=== PATIENT | female | born 1940 | race African-American/Black ===

== ENCOUNTER 2016-11-03 08:50 | Emergency (ER) | payer MEDICAID ==
[~2016-11-03] VITALS: Ht 170.2 cm; Wt 64.0 kg
[~2016-11-03 08:50] MED LIST: ASPI-1073 PO; CARV3.1242 PO; CHOL200035 PO; CYAN1TAB43; CYCL-374 PO; ERGO2000 PO; FOLIC ACID PO; GLIP5TAB12 PO; LORA0.5T2 PO; LOSA25TA12 PO; LOSA50TA3 PO; METO50TA95 PO; RENA-VITE PO; SIMV40TA5 PO; ZINC220C6 PO; [UNRECOGNIZED DRUG - CODE] PO
[2016-11-03 09:26] VITALS: BP 195/76
== END 2016-11-03 12:17 | disposition home or self-care (01) ==
LOC: ER 12:03
DX: Z48.02 Encounter for removal of sutures (principal); I10 Essential (primary) hypertension; E11.9 Type 2 diabetes mellitus without complications; Z99.2 Dependence on renal dialysis; Z79.82 Long term (current) use of aspirin
CPT/HCPCS: 99281; Z7610

== ENCOUNTER 2018-03-04 07:24 | Inpatient (IN) | payer MEDICAID ==
[~2018-03-04] VITALS: Ht 162.6 cm; Wt 63.6 kg
[~2018-03-04 07:24] MED LIST changes: +AMLO5TAB4 PO; +ATOR20TA65 PO; +CHOL200010 PO; -CHOL200035 PO; +CLOP75TA16 PO; -CYAN1TAB43; +CYAN1TAB43 PO; -CYCL-374 PO; +DOXA4TAB3 PO; -ERGO2000 PO; +GUAI10LI9 PO; -LORA0.5T2 PO; -METO50TA95 PO; -SIMV40TA5 PO; -ZINC220C6 PO
[2018-03-04] MEDS ORDERED: LORAZEPAM 2MG/ML CPJ IM STA (10:39)
[2018-03-04] MEDS ORDERED: LORAZEPAM 2MG/ML CPJ IV ONE (11:30)
[2018-03-04 12:02] LABS: HEMATOCRIT. 38.8 % (36.0-48.0); HEMOGLOBIN. 12.5 g/dL (12.0-16.0); MEAN CORPUSCULAR HEMOGLOBIN 30.4 pg (28.0-32.0); MEAN CORPUSCULAR VOLUME 94.7 fL (81.0-99.0); RED CELL DISTRIBUTION WIDTH 17.4 % (11.6-14.6)
[2018-03-04 12:05] LABS: CHLORIDE 95 mEq/L (98-107)
[2018-03-04 12:06] LABS: INR 1.1; PARTIAL THROMBOPLASTIN TIME 24.3 sec (23.4-31.0); PROTHROMBIN TIME 10.9 sec (9.1-11.1)
[2018-03-04] MEDS ORDERED: ASPIRIN 81MG TABLET PO ONE (12:30)
[2018-03-04 12:32] LABS: CLARITY URINE TURBID (CLEAR); COLOR URINE DARK YELLOW (YELLOW); KETONES URINE NEGATIVE (NEGATIVE); LEUKOCYTE ESTERASE URINE 2+ (NEGATIVE); NITRITE URINE NEGATIVE (NEGATIVE); OCCULT BLOOD URINE 1+ (NEGATIVE); PH URINE >=9.0 (4.5-8.0); PROTEIN URINE 3+ (NEGATIVE); SPECIFIC GRAVITY URINE 1.013 (1.005-1.030); UROBILINOGEN URINE 0.2 E.U./dL (0.2-1.0)
[2018-03-04 12:54] LABS: PLATELET ESTIMATE NORMAL
[2018-03-04 12:55] LABS: PLATELET 146 x1000/uL (130-400)
[2018-03-04] MEDS ORDERED: CEFTRIAXONE 1 G PREMIX 50 ML IV ONE (13:45)
[2018-03-04] MEDS ORDERED: HYDRALAZINE 20MG/ML VIAL IV ONE (14:00)
[2018-03-04 15:45] VITALS: BP 134/62
[2018-03-04 16:06] VITALS: BP 134/62
[2018-03-04] MEDS ORDERED: ONDANSETRON HCL 4MG/2ML INJ IV PRN (18:00)
[2018-03-04] MEDS ORDERED: MEDICATION NOT ON FORMULARY EA XX SCH ×8 (18:00)
[2018-03-04] MEDS ORDERED: DIPHENHYDRAMINE 50MG/ML VIAL IV PRN (18:00)
[2018-03-04] MEDS ORDERED: CLONIDINE 0.1MG TABLET PO PRN (18:00)
[2018-03-04] MEDS ORDERED: DOCUSATE SODIUM 100MG CAPSULE PO PRN (18:00)
[2018-03-04] MEDS ORDERED: ACETAMINOPHEN 325MG TABLET PO PRN (18:00)
[2018-03-04 20:00] VITALS: BP 138/80
[2018-03-04] MEDS: PIPERACILLIN/TAZ 2.25G PREMIX 50 ML IV SCH (20:20)
[2018-03-04] MEDS: ENOXAPARIN 30MG/0.3ML SYR SUBCUT SCH (20:25)
[2018-03-04] MEDS: CARVEDILOL 6.25 MG TABLET PO SCH (20:28)
[2018-03-04] MEDS: ATORVASTATIN CALCIUM 20MG TABLET PO SCH (20:28)
[2018-03-04] MEDS: AMLODIPINE 5MG TABLET PO SCH (20:29)
[2018-03-04] MEDS: DOXAZOSIN MESYLATE 4MG TABLET PO SCH (20:31)
[2018-03-04] MEDS ORDERED: VANCOMYCIN 1250MG in DEXTROSE 5% WATER 250ML IV NR (21:00)
[2018-03-04] MEDS: SODIUM CHLORIDE 0.9% INJ 3ML FLUSH IVF SCH (21:18)
[2018-03-04 22:00] VITALS: BP 169/90
[2018-03-04] MEDS ORDERED: DEXTROSE 50% WATER 50ML SYRINGE IV PRN (23:15)
[2018-03-05] VITALS (8 sets, daily range): BP systolic 128–165; BP diastolic 48–59
[2018-03-05] MEDS ORDERED: LEVOFLOXACIN 500MG TABLET PO SCH
[2018-03-05] MEDS: PIPERACILLIN/TAZ 2.25G PREMIX 50 ML IV SCH ×3 (04:00→20:00)
[2018-03-05] MEDS: SODIUM CHLORIDE 0.9% INJ 3ML FLUSH IVF SCH ×3 (05:27→21:36)
[2018-03-05] MEDS: BLOOD SUGAR DIAGNOSTIC STRIP TEST SCH ×4 (06:18→20:19)
[2018-03-05] MEDS ORDERED: INSULIN LISPRO 100 UNITS/ML SUBCUT SCH (08:10)
[2018-03-05] MEDS: FOLIC ACID/VITAMIN B COMP W-C TABLET PO SCH (08:39)
[2018-03-05] MEDS: CARVEDILOL 6.25 MG TABLET PO SCH ×2 (08:39→20:13)
[2018-03-05] MEDS: AMLODIPINE 5MG TABLET PO SCH ×2 (08:39→20:13)
[2018-03-05] MEDS: LOSARTAN POTASSIUM 25 MG TABLET PO SCH (08:39)
[2018-03-05] MEDS: CLOPIDOGREL 75MG TABLET PO SCH (08:39)
[2018-03-05] MEDS: GLIPIZIDE 5MG TABLET PO SCH (08:39)
[2018-03-05] MEDS: CHOLECALCIFEROL (D3) 1000 UNIT TABLET PO SCH (08:40)
[2018-03-05] MEDS: ASPIRIN 81MG TABLET PO SCH (08:40)
[2018-03-05] MEDS: CALCIUM CARBONATE 500MG TABLET CHEW PO SCH ×3 (08:40→18:10)
[2018-03-05] MEDS: ATORVASTATIN CALCIUM 20MG TABLET PO SCH (20:12)
[2018-03-05] MEDS: ENOXAPARIN 30MG/0.3ML SYR SUBCUT SCH (20:12)
[2018-03-05] MEDS: DOXAZOSIN MESYLATE 4MG TABLET PO SCH (20:12)
[2018-03-06] VITALS: BP 153/42
[2018-03-06] MEDS: PIPERACILLIN/TAZ 2.25G PREMIX 50 ML IV SCH ×3 (03:52→20:00)
[2018-03-06 04:00] VITALS: BP 163/50
[2018-03-06] MEDS: SODIUM CHLORIDE 0.9% INJ 3ML FLUSH IVF SCH ×3 (05:32→21:44)
[2018-03-06] MEDS: BLOOD SUGAR DIAGNOSTIC STRIP TEST SCH ×4 (07:40→21:44)
[2018-03-06 08:00] VITALS: BP 158/67
[2018-03-06] MEDS: CLOPIDOGREL 75MG TABLET PO SCH (08:27)
[2018-03-06] MEDS: FOLIC ACID/VITAMIN B COMP W-C TABLET PO SCH (08:27)
[2018-03-06] MEDS: ASPIRIN 81MG TABLET PO SCH (08:27)
[2018-03-06] MEDS: AMLODIPINE 5MG TABLET PO SCH ×2 (08:27→21:00)
[2018-03-06] MEDS: CALCIUM CARBONATE 500MG TABLET CHEW PO SCH ×3 (08:27→18:25)
[2018-03-06] MEDS: CHOLECALCIFEROL (D3) 1000 UNIT TABLET PO SCH (08:27)
[2018-03-06] MEDS: CARVEDILOL 6.25 MG TABLET PO SCH ×2 (08:28→21:00)
[2018-03-06 09:29] LABS: BASOPHILS % 0.8 % (0.0-2.0); EOSINOPHILS % 6.7 % (0.0-5.0); HEMATOCRIT. 31.1 % (36.0-48.0); HEMOGLOBIN. 9.9 g/dL (12.0-16.0); LYMPHOCYTES % 30.1 % (20.0-50.0); MEAN CORPUSCULAR HEMOGLOBIN 29.9 pg (28.0-32.0); MEAN CORPUSCULAR VOLUME 93.6 fL (81.0-99.0); MEAN PLATELET VOLUME 11.1 fl (7.4-10.4); MONOCYTES % 12.2 % (2.0-8.0); NEUTROPHILS % 50.2 % (40.0-76.0); PLATELET 147 x1000/uL (130-400); RED BLOOD CELL COUNT 3.33 mill/uL (4.2-5.4); RED CELL DISTRIBUTION WIDTH 17.3 % (11.6-14.6)
[2018-03-06 09:56] LABS: PHOSPHORUS 4.7 mg/dL (2.5-4.9)
[2018-03-06] MEDS: GLIPIZIDE 5MG TABLET PO SCH (11:37)
[2018-03-06] MEDS: LOSARTAN POTASSIUM 25 MG TABLET PO SCH (11:43)
[2018-03-06 12:00] VITALS: BP 164/59
[2018-03-06] MEDS ORDERED: VANCOMYCIN 1250MG in DEXTROSE 5% WATER 250ML IV NR (14:00)
[2018-03-06 16:00] VITALS: BP 173/61
[2018-03-06 20:00] VITALS: BP 159/70
[2018-03-06] MEDS: ENOXAPARIN 30MG/0.3ML SYR SUBCUT SCH (20:00)
[2018-03-06] MEDS ORDERED: EPOETIN ALFA 4000UNITS/ML VIAL SUBCUT SCH (21:00)
[2018-03-06] MEDS ORDERED: LEVOFLOXACIN 250MG TABLET PO SCH (21:00)
[2018-03-06] MEDS: ATORVASTATIN CALCIUM 20MG TABLET PO SCH (21:00)
[2018-03-06] MEDS: DOXAZOSIN MESYLATE 4MG TABLET PO SCH (21:00)
[2018-03-07] VITALS (8 sets, daily range): BP systolic 134–170; BP diastolic 47–82
[2018-03-07] MEDS: PIPERACILLIN/TAZ 2.25G PREMIX 50 ML IV SCH ×3 (04:00→13:51)
[2018-03-07] MEDS: SODIUM CHLORIDE 0.9% INJ 3ML FLUSH IVF SCH ×2 (06:00→14:00)
[2018-03-07] MEDS: GLIPIZIDE 5MG TABLET PO SCH (06:42)
[2018-03-07] MEDS: BLOOD SUGAR DIAGNOSTIC STRIP TEST SCH ×3 (06:42→17:40)
[2018-03-07] MEDS: CALCIUM CARBONATE 500MG TABLET CHEW PO SCH ×3 (08:10→18:10)
[2018-03-07] MEDS: CLOPIDOGREL 75MG TABLET PO SCH (10:03)
[2018-03-07] MEDS: FOLIC ACID/VITAMIN B COMP W-C TABLET PO SCH (10:03)
[2018-03-07] MEDS: CARVEDILOL 6.25 MG TABLET PO SCH (10:04)
[2018-03-07] MEDS: AMLODIPINE 5MG TABLET PO SCH (10:04)
[2018-03-07] MEDS: ASPIRIN 81MG TABLET PO SCH (10:05)
[2018-03-07] MEDS: LOSARTAN POTASSIUM 25 MG TABLET PO SCH (10:05)
[2018-03-07] MEDS: CHOLECALCIFEROL (D3) 1000 UNIT TABLET PO SCH (10:21)
[2018-03-07] MEDS: VANCOMYCIN 1250MG in DEXTROSE 5% WATER 250ML IV NR ×2 (13:53→14:00)
== END 2018-03-07 21:50 | DRG 720 ==
LOC: ER 07:24 → 7WST 13:39 → EDBEDREQ 14:12 → ENRESERV 14:43
PROVIDERS: ADMIT Internal Medicine Nephrology; ATTEND Internal Medicine Nephrology
DX: A41.9 Sepsis, unspecified organism (principal); G92 Toxic encephalopathy; E11.22 Type 2 diabetes mellitus with diabetic chronic kidney disease; E11.51 Type 2 diabetes mellitus with diabetic peripheral angiopathy without gangrene; I49.5 Sick sinus syndrome; I08.1 Rheumatic disorders of both mitral and tricuspid valves; D64.9 Anemia, unspecified; F41.9 Anxiety disorder, unspecified; N39.0 Urinary tract infection, site not specified; E78.00 Pure hypercholesterolemia, unspecified; I12.0 Hypertensive chronic kidney disease with stage 5 chronic kidney disease or end stage renal disease; N18.6 End stage renal disease; I42.0 Dilated cardiomyopathy; G31.9 Degenerative disease of nervous system, unspecified; T82.524A Displacement of infusion catheter, initial encounter; Y84.8 Other medical procedures as the cause of abnormal reaction of the patient, or of later complication, without mention of misadventure at the time of the procedure; Y92.238 Other place in hospital as the place of occurrence of the external cause; Z53.29 Procedure and treatment not carried out because of patient's decision for other reasons; I25.2 Old myocardial infarction; Z99.2 Dependence on renal dialysis; Z95.0 Presence of cardiac pacemaker; Z79.82 Long term (current) use of aspirin; Z79.84 Long term (current) use of oral hypoglycemic drugs; Z79.899 Other long term (current) drug therapy; Z89.411 Acquired absence of right great toe; Z88.8 Allergy status to other drugs, medicaments and biological substances
CPT/HCPCS: 36415; 70450; 71045; 80048; 80053; 80202; 81003; 82962; 83880; 84100; 84484; 85025; 85610; 85730; 87086; 93005; 96372; 96374; 99285; J0360; J0885; J1650; J2060; J2543; J3370; J7050; J7060

== ENCOUNTER 2018-10-21 11:48 | Emergency (ER) | payer MEDICAID ==
[~2018-10-21] VITALS: Ht 317.5 cm; Wt 58.0 kg
[2018-10-21 12:51] LABS: HEMATOCRIT. 33.9 % (36.0-48.0); HEMOGLOBIN. 10.7 g/dL (12.0-16.0); MEAN CORPUSCULAR VOLUME 85.9 fL (81.0-99.0); MEAN PLATELET VOLUME 8.8 fl (7.4-10.4); PLATELET 211 x1000/uL (130-400); RED BLOOD CELL COUNT 3.95 mill/uL (4.2-5.4); RED CELL DISTRIBUTION WIDTH 20.5 % (11.6-14.6)
[2018-10-21 12:58] LABS: CHLORIDE 99 mEq/L (98-107)
[2018-10-21 13:01] LABS: INR 1.1
[2018-10-21 13:10] LABS: PLATELET ESTIMATE NORMAL
[2018-10-21 17:30] VITALS: BP 141/68
== END 2018-10-21 18:07 | disposition home or self-care (01) ==
LOC: ER 11:48
DX: T82.868A Thrombosis due to vascular prosthetic devices, implants and grafts, initial encounter (principal); E11.22 Type 2 diabetes mellitus with diabetic chronic kidney disease; I12.0 Hypertensive chronic kidney disease with stage 5 chronic kidney disease or end stage renal disease; N18.6 End stage renal disease; Z79.4 Long term (current) use of insulin; Z79.899 Other long term (current) drug therapy; Z99.2 Dependence on renal dialysis
CPT/HCPCS: 36415; 71045; 93005; 99284

== ENCOUNTER 2018-10-22 10:15 | Inpatient (IN) | payer MEDICAID ==
[~2018-10-22] VITALS: Ht 154.9 cm; Wt 59.9 kg
[2018-10-22 11:28] LABS: CHLORIDE 100 mEq/L (98-107)
[2018-10-22 11:29] LABS: HEMATOCRIT. 33.5 % (36.0-48.0); HEMOGLOBIN. 10.5 g/dL (12.0-16.0); MEAN CORPUSCULAR HEMOGLOBIN 26.9 pg (28.0-32.0); MEAN CORPUSCULAR VOLUME 85.4 fL (81.0-99.0); MEAN PLATELET VOLUME 8.9 fl (7.4-10.4); PLATELET 233 x1000/uL (130-400); RED BLOOD CELL COUNT 3.92 mill/uL (4.2-5.4); RED CELL DISTRIBUTION WIDTH 20.3 % (11.6-14.6)
[2018-10-22 11:33] LABS: PROTHROMBIN TIME 10.7 sec (9.6-11.0)
[2018-10-22 11:50] LABS: PLATELET ESTIMATE NORMAL
[2018-10-22] MEDS ORDERED: SODIUM BICARBONATE 4% (2.4MEQ) 5ML VIAL IV ONE (14:25)
[2018-10-22] MEDS ORDERED: LIDOCAINE HCL 1% 20ML VIAL (Pyxis) INJ ONE (14:25)
[2018-10-22] MEDS ORDERED: ONDANSETRON HCL 4MG/2ML INJ IV PRN (15:30)
[2018-10-22] MEDS ORDERED: ACETAMINOPHEN 325MG TABLET PO PRN (15:30)
[2018-10-22] MEDS: CLONIDINE 0.1MG TABLET PO PRN (16:10)
[2018-10-22] MEDS ORDERED: LOSARTAN POTASSIUM 100 MG TABLET PO NR (16:15)
[2018-10-22 18:30] VITALS: BP 182/62
[2018-10-22 20:00] VITALS: BP_SYST 181; BP_SYST 190; BP_DIAS 80; BP_DIAS 96
[2018-10-22] MEDS: AMLODIPINE 5MG TABLET PO SCH (20:18)
[2018-10-22] MEDS: CARVEDILOL 6.25 MG TABLET PO SCH (20:18)
[2018-10-22] MEDS ORDERED: ZOLPIDEM TARTRATE 5MG TABLET PO PRN (21:00)
[2018-10-22] MEDS: DOXAZOSIN MESYLATE 4MG TABLET PO SCH (22:33)
[2018-10-22] MEDS: HYDRALAZINE HCL 50MG TABLET PO SCH (22:33)
[2018-10-23] VITALS (22 sets, daily range): BP systolic 107–178; BP diastolic 48–61
[2018-10-23] MEDS: HYDRALAZINE HCL 50MG TABLET PO SCH (05:21)
[2018-10-23] MEDS ORDERED: GLIPIZIDE 5MG TABLET PO SCH (07:10)
[2018-10-23] MEDS ORDERED: HEPARIN 1000 UNITS/ML 10ML ONE (07:28)
[2018-10-23] MEDS ORDERED: LIDOCAINE HCL 1% 20ML VIAL (Pyxis) INJ ONE (07:28)
[2018-10-23] MEDS ORDERED: SODIUM BICARBONATE 4% (2.4MEQ) 5ML VIAL IV ONE (07:28)
[2018-10-23] MEDS: SEVELAMER CARBONATE 800 MG TABLET PO SCH ×3 (07:40→18:39)
[2018-10-23] MEDS: LOSARTAN POTASSIUM 100 MG TABLET PO SCH (08:15)
[2018-10-23] MEDS: AMLODIPINE 5MG TABLET PO SCH ×2 (08:16→20:58)
[2018-10-23] MEDS: CARVEDILOL 6.25 MG TABLET PO SCH ×2 (08:16→20:57)
[2018-10-23] MEDS: FOLIC ACID/VITAMIN B COMP W-C TABLET PO SCH (08:22)
[2018-10-23] MEDS: ASPIRIN 81MG TABLET PO SCH (08:22)
[2018-10-23] MEDS: CLOPIDOGREL 75MG TABLET PO SCH (08:22)
[2018-10-23] MEDS ORDERED: CEFAZOLIN 1000MG PREMIX 50 ML IV ONE ×2 (09:14→09:15)
[2018-10-23] MEDS ORDERED: FENTANYL CITRATE/PF 50MCG/ML 2ML VIAL ONE (09:15)
[2018-10-23] MEDS ORDERED: IOHEXOL-300 100 ML BOTTLE ONE (09:15)
[2018-10-23] MEDS ORDERED: FENTANYL CITRATE/PF 50MCG/ML 2ML VIAL IV ONE (09:30)
[2018-10-23] MEDS ORDERED: ONDANSETRON HCL 4MG/2ML INJ IV PRN (11:45)
[2018-10-23 12:14] LABS: HEMATOCRIT. 28.7 % (36.0-48.0); HEMOGLOBIN. 9.2 g/dL (12.0-16.0); MEAN CORPUSCULAR HEMOGLOBIN 26.9 pg (28.0-32.0); MEAN CORPUSCULAR VOLUME 84.1 fL (81.0-99.0); MEAN PLATELET VOLUME 8.3 fl (7.4-10.4); PLATELET 195 x1000/uL (130-400); RED BLOOD CELL COUNT 3.41 mill/uL (4.2-5.4); RED CELL DISTRIBUTION WIDTH 20.2 % (11.6-14.6)
[2018-10-23 13:11] LABS: PLATELET ESTIMATE NORMAL
[2018-10-23] MEDS: HYDRALAZINE HCL 100MG TABLET PO SCH ×2 (14:00→20:58)
[2018-10-23] MEDS: DOXAZOSIN MESYLATE 4MG TABLET PO SCH (20:57)
[2018-10-24] VITALS: BP 161/52
[2018-10-24 04:00] VITALS: BP 152/51
[2018-10-24] MEDS: HYDRALAZINE HCL 100MG TABLET PO SCH ×3 (05:09→17:46)
[2018-10-24 08:00] VITALS: BP 170/69
[2018-10-24] MEDS: SEVELAMER CARBONATE 800 MG TABLET PO SCH ×2 (08:12→12:40)
[2018-10-24 08:13] LABS: HEMATOCRIT. 29.3 % (36.0-48.0); HEMOGLOBIN. 9.3 g/dL (12.0-16.0); MEAN CORPUSCULAR HEMOGLOBIN 26.6 pg (28.0-32.0); MEAN PLATELET VOLUME 9.4 fl (7.4-10.4); PLATELET 198 x1000/uL (130-400); RED BLOOD CELL COUNT 3.49 mill/uL (4.2-5.4); RED CELL DISTRIBUTION WIDTH 20.4 % (11.6-14.6)
[2018-10-24] MEDS: CLOPIDOGREL 75MG TABLET PO SCH ×2 (09:00→11:59)
[2018-10-24] MEDS: FOLIC ACID/VITAMIN B COMP W-C TABLET PO SCH ×2 (09:00→11:59)
[2018-10-24] MEDS: AMLODIPINE 5MG TABLET PO SCH ×2 (09:00→11:59)
[2018-10-24] MEDS: LOSARTAN POTASSIUM 100 MG TABLET PO SCH ×2 (09:00→11:58)
[2018-10-24] MEDS: ASPIRIN 81MG TABLET PO SCH ×2 (09:00→11:59)
[2018-10-24] MEDS: CARVEDILOL 6.25 MG TABLET PO SCH ×2 (09:00→11:59)
[2018-10-24 10:34] LABS: PLATELET ESTIMATE NORMAL
[2018-10-24 12:00] VITALS: BP 179/49
[2018-10-24] MEDS ORDERED: LOSA100T3 PO (13:42)
[2018-10-24] MEDS ORDERED: HYDR100T26 PO (13:42)
[2018-10-24 15:44] VITALS: BP 165/60
[2018-10-24 15:45] VITALS: BP 165/60
[2018-10-24] MEDS: CLONIDINE 0.1MG TABLET PO PRN (17:46)
== END 2018-10-24 18:05 | DRG 182 ==
LOC: ER 10:15 → 8WST 14:43 → EDBEDREQSVC 14:56 → EDBEDREQ 14:56 → ENRESERV 15:22
PROVIDERS: ADMIT Internal Medicine; ATTEND Internal Medicine
PROC: 05H533Z Insertion of Infusion Device into Right Subclavian Vein, Percutaneous Approach (ICD-10-PCS; principal; 2018-10-22)
PROC: B5161ZA Fluoroscopy of Right Subclavian Vein using Low Osmolar Contrast, Guidance (ICD-10-PCS; 2018-10-22)
PROC: B546ZZA Ultrasonography of Right Subclavian Vein, Guidance (ICD-10-PCS; 2018-10-22)
PROC: 03C83ZZ Extirpation of Matter from Left Brachial Artery, Percutaneous Approach (ICD-10-PCS; 2018-10-23)
PROC: B31J1ZZ Fluoroscopy of Left Upper Extremity Arteries using Low Osmolar Contrast (ICD-10-PCS; 2018-10-23)
PROC: B51N1ZZ Fluoroscopy of Left Upper Extremity Veins using Low Osmolar Contrast (ICD-10-PCS; 2018-10-23)
PROC: B5181ZZ Fluoroscopy of Superior Vena Cava using Low Osmolar Contrast (ICD-10-PCS; 2018-10-23)
PROC: B51W1ZZ Fluoroscopy of Dialysis Shunt/Fistula using Low Osmolar Contrast (ICD-10-PCS; 2018-10-23)
PROC: 05CY3ZZ Extirpation of Matter from Upper Vein, Percutaneous Approach (ICD-10-PCS; 2018-10-23)
PROC: 057Y3ZZ Dilation of Upper Vein, Percutaneous Approach (ICD-10-PCS; 2018-10-23)
PROC: 5A1D70Z Performance of Urinary Filtration, Intermittent, Less than 6 Hours Per Day (ICD-10-PCS; 2018-10-23)
DX: T82.868A Thrombosis due to vascular prosthetic devices, implants and grafts, initial encounter (principal); I13.2 Hypertensive heart and chronic kidney disease with heart failure and with stage 5 chronic kidney disease, or end stage renal disease; E11.22 Type 2 diabetes mellitus with diabetic chronic kidney disease; E11.51 Type 2 diabetes mellitus with diabetic peripheral angiopathy without gangrene; N18.6 End stage renal disease; I08.1 Rheumatic disorders of both mitral and tricuspid valves; I42.0 Dilated cardiomyopathy; I50.23 Acute on chronic systolic (congestive) heart failure; D63.8 Anemia in other chronic diseases classified elsewhere; F41.9 Anxiety disorder, unspecified; F03.90 Unspecified dementia, unspecified severity, without behavioral disturbance, psychotic disturbance, mood disturbance, and anxiety; Y83.2 Surgical operation with anastomosis, bypass or graft as the cause of abnormal reaction of the patient, or of later complication, without mention of misadventure at the time of the procedure; Y92.89 Other specified places as the place of occurrence of the external cause; Z79.84 Long term (current) use of oral hypoglycemic drugs; Z89.411 Acquired absence of right great toe; Z95.0 Presence of cardiac pacemaker; Z88.8 Allergy status to other drugs, medicaments and biological substances; Z99.2 Dependence on renal dialysis; Z79.899 Other long term (current) drug therapy; Z79.82 Long term (current) use of aspirin
CPT/HCPCS: 36415; 36569; 36573; 36905; 71045; 80048; 82962; 83036; 86850; 86900; 93005; 97162; 99152; 99153; 99285; C1725; C1766; C1769; C1893; C2630; J0690; J1644; J2405; J3010; J3490; J7050; Q9967; G0500

== ENCOUNTER 2018-11-25 11:09 | Emergency (ER) | payer MEDICAID ==
[~2018-11-25] VITALS: Ht 165.1 cm; Wt 65.0 kg
[~2018-11-25 11:09] MED LIST changes: -ATOR20TA65 PO; -CLOP75TA16 PO; +CLOP75TA4 PO; -FOLIC ACID PO; -GUAI10LI9 PO; +HYDR100T26 PO; +LOSA100T3 PO; -LOSA25TA12 PO; -LOSA50TA3 PO; -RENA-VITE PO
[2018-11-25 15:25] VITALS: BP 193/72
== END 2018-11-25 15:27 | disposition home or self-care (01) ==
LOC: ER 11:09
DX: T82.49XA Other complication of vascular dialysis catheter, initial encounter (principal); E11.9 Type 2 diabetes mellitus without complications; I10 Essential (primary) hypertension; Z98.890 Other specified postprocedural states; Z88.8 Allergy status to other drugs, medicaments and biological substances; Z79.899 Other long term (current) drug therapy
CPT/HCPCS: 99283